=== PATIENT | male | born 1960 | race Caucasian/White ===

== ENCOUNTER 2017-03-09 18:56 | Emergency (ER) | payer OTHER ==
[~2017-03-09] VITALS: Ht 180.3 cm; Wt 108.9 kg
--- NOTE | 2017-03-09 18:58 | NUR ---
Pt placed in bed 5 by EMS.
[2017-03-09 18:59] VITALS: BP 122/77
--- NOTE | 2017-03-09 19:07 | NUR ---
56/M biba from a [employer], found down upon arrival. Per EMS, pt had a few beers according to by standers and pt was assisted down to the ground. EMS was called when they couldn't get the patient back up from the ground. Pt denies medical hx. Denies alcohol abuse. AOX4, slurred speech. VSS.
--- NOTE | 2017-03-09 19:15 | NUR ---
Pt report given to Antonino ARCHIBALD. Transfer of care at this time.
--- NOTE | 2017-03-09 19:16 | NUR ---
GOT REPORT FROM TAYLOR MANZO. PT. RESTING IN BED, NO S/SX OF DISTRESS AT THIS TIME.
[2017-03-09] MEDS ORDERED: MULTIVITAMIN-12 10 ML, THIAMINE 100 MG, MAGNESIUM SULFATE 50% 2,000 MG, FOLIC ACID 5 MG... IV ONE ×5 (20:26)
[2017-03-09] MEDS ORDERED: FOLIC ACID 5 MG/ML SYR ONE (20:36)
[2017-03-09] MEDS ORDERED: MULTIVITAMIN-12 10 ML VIAL IV ONE (20:36)
[2017-03-09] MEDS ORDERED: MAGNESIUM SULFATE 50% 1000 MG/2 ML VIAL IV ONE (20:36)
[2017-03-09] MEDS ORDERED: THIAMINE 200 MG/2 ML VIAL ONE (20:36)
[2017-03-09 20:47] LABS: BASOPHILS # (AUTO) 0.4 K/uL (0.00-0.22); EOSINOPHILS # (AUTO) 0.2 K/uL (0-0.4); HEMATOCRIT 34.6 % (36-52); HEMOGLOBIN 11.4 g/dL (12.0-18.0); LYMPHOCYTES # (AUTO) 1.4 K/uL (2.0-11.5); MEAN CORPUSCULAR HEMOGLOBIN 33 pg (27-31); MEAN CORPUSCULAR HGB CONC 33 g/dL (33-37); MEAN CORPUSCULAR VOLUME 98 fL (80-94); MONOCYTES # (AUTO) 0.4 K/uL (0.8-1.0); PLATELET COUNT (AUTO) 168 K/uL (140-450); RED BLOOD CELL COUNT(AUTO) 3.52 MIL/uL (4.20-6.10); RED CELL DISTRIBUTION WIDTH 17.8 % (11.6-13.7); WHITE BLOOD COUNT (AUTO) 7.4 K/uL (4.8-10.8)
[2017-03-09 20:59] LABS: ANION GAP 10.9 (8-16); CALCIUM 8.1 mg/dL (8.5-10.1); CARBON DIOXIDE 28.9 mmol/L (21-32); POTASSIUM 3.8 mmol/L (3.5-5.1)
[2017-03-09 21:06] LABS: ALBUMIN 3.3 g/dL (3.4-5.0); TOTAL BILIRUBIN 0.3 mg/dL (0.0-1.0); TOTAL PROTEIN, SERUM 6.9 g/dL (6.4-8.2)
[2017-03-09 21:22] LABS: AMPHETAMINE, URINE NEG. ng/ml (NEG <=1000); BARBITURATE, URINE NEG. ng/ml (NEG <=200); BENZODIAZEPINE, URINE NEG. ng/mL (NEG <=200); CANNABINOID, URINE NEG. ng/mL (NEG <=50); COCAINE, URINE NEG. ng/mL (NEG <=300); OPIATE, URINE NEG. ng/mL (NEG <=2000); PHENCYCLIDINE SCREEN,URINE NEG. ng/mL (NEG <=25)
--- NOTE | 2017-03-09 21:30 | NUR ---
Patient appears to be resting comfortably in bed. Vital Signs within normal limits. Respirations even and unlabored.
--- NOTE | 2017-03-10 | NUR ---
PT.AAO X4, AMBULATORY WITH STEADY GAIT. VSS, NO S/SX OF DISTRESS AT THIS TIME.
--- NOTE | 2017-03-10 01:31 | NUR ---
US AT BEDSIDE
[2017-03-10 01:40] VITALS: BP 116/72
--- NOTE | 2017-03-10 01:40 | NUR ---
Patient discharged with v/s stable. Written and verbal after care instructions given and explained. Patient verbalized understanding. Ambulatory with steady gait. All questions addressed prior to discharge. Advised to follow up with PMD.
== END 2017-03-10 01:40 | disposition home or self-care (01) ==
LOC: MED 18:56
DX: F10.129 Alcohol abuse with intoxication, unspecified (principal); M79.89 Other specified soft tissue disorders
CPT/HCPCS: 36415; 80053; 80305; 85025; 93971; 96360; 96361; 99285; A9153; G0482; J3411; J3475; J3490; J7030; Q0092